=== PATIENT | female | born 1980 | race African-American/Black ===

== ENCOUNTER 2021-07-21 08:25 | Outpatient (CLI) | payer OTHER ==
[2021-07-21] MEDS ORDERED: Iopamidol-370 76% 500 ML 1 ML ONE (11:04)
== END 2021-07-21 08:26 | disposition home or self-care (01) ==
LOC: CT 08:25
PROVIDERS: ATTEND Family Medicine
DX: R20.0 Anesthesia of skin (principal); G93.89 Other specified disorders of brain
CPT/HCPCS: 70470